=== PATIENT | female | born 1990 | race Caucasian/White ===

== ENCOUNTER 2022-02-15 08:06 | Emergency (ER) | payer BC, SELFPAY ==
--- NOTE | 2022-02-15 08:13 | HMH.EDEXTP ---
ED Disposition Clinical Impression: Vertigo, Gastroenteritis Disposition: Home, Self-Care Condition on Discharge: Good Instructions: Vertigo Additional Instructions: follow up pcp as needed, return hetre for worse Prescriptions: Meclizine HCl [Antivert 25mg tablet] 25 mg PO Q8 PRN #15 tab PRN Reason: Vertigo Transmission Status: Pending to [facility] Ondansetron [Zofran 4mg ODT] 4 mg PO TIDP PRN #15 tab PRN Reason: Nausea And Vomiting Transmission Status: Pending to [id number] Referrals: April Rolon [Primary Care Provider] - - Critical Care Critical Care Time: No Attestation: On , the high probability of a clinically significant, sudden or life threatening deterioration of the following system(s) required my full and direct attention, intervention and personal management. The time I documented below is in addition to time spent performing reported procedures but includes the following listed in this critical care notation. Medical Decision Making - Medical Records Medical records reviewed: Yes: I reviewed the patient's medical records. - Alfred Inquiry Pt receiving controlled substance: No Vital Signs: 02/15/22 08:20 02/15/22 08:30 02/15/22 09:23 Temperature 98.3 F Temperature Source Oral Pulse Rate 69 68 Pulse Rate [Left Radial] 71 Respiratory Rate 17 Blood Pressure 105/63 L 103/70 L Blood Pressure [Right Arm] 92/52 L Blood Pressure Mean 74 81 Blood Pressure Mean [Right Arm] 65 02 Sat by Pulse Oximetry 100 99 100 Oxygen Delivery Method Room Air 02/15/22 09:30 02/15/22 10:01 Temperature Temperature Source Pulse Rate 67 62 Pulse Rate [Left Radial] Respiratory Rate Blood Pressure 110/66 94/62 L Blood Pressure [Right Arm] Blood Pressure Mean 89 73 Blood Pressure Mean [Right Arm] 02 Sat by Pulse Oximetry 100 100 Oxygen Delivery Method - Lab Data Lab Results 02/15/22 08:12: Urine Color Yellow, Urine Appearance Cloudy, Urine pH 8.5, Ur Specific [place] 1.015, Urine Protein Trace, Urine Glucose (UA) Negative, Urine Ketones Negative, Urine Blood 3+, Urine Nitrate Negative, Urine Bilirubin Negative, Urine Urobilinogen 0.2, Ur Leukocyte Esterase Negative, Urine RBC 5-10, Ur Squamous Epith Cells Occasional, Amorphous Sediment 2+, Urine Bacteria 2+ 02/15/22 08:12: Urine HCG, Qual Negative 02/15/22 08:15: WBC 7.0, RBC 4.97, Hgb 14.3, Hct 42.9, MCV 86.3, MCH 28.7, MCHC 33.3, RDW 13.0, Plt Count 344, MPV 7.8, Neut % (Auto) 80.4 H, Lymph % (Auto) 15.3, [place] % (Auto) 3.3, Eos % (Auto) 0.2, Baso % (Auto) 0.8, Neut # (Auto) 5.6, Lymph # (Auto) 1.1, Garfield # (Auto) 0.2, Eos # (Auto) 0.0, Baso # (Auto) 0.1 02/15/22 08:15: Sodium 138, Potassium 4.2, Chloride 107, Carbon Dioxide 23, Anion Gap 12.2, BUN 9, Creatinine 0.50 L, Estimated Creat Clear 186, Estimated GFR 145, Est GFR ( Amer) 175, Glucose 154 H, Calcium 9.2, Total Bilirubin 0.5, AST 30, ALT 25, Alkaline Phosphatase 75, Total Protein 7.7, Albumin 4.8, Globulin 2.9, Albumin/Globulin Ratio 1.7 02/15/22 08:15: Serum HCG, Qual Negative Result diagrams: 02/15/22 08:15 02/15/22 08:15 Orders (Tests/Meds): ED MEDICATIONS Generic Name Dose Route Start Last Admin Trade Name Freq PRN Reason Stop Dose Admin Sodium Chloride 10 ml 02/15/22 10:18 Sodium Chloride 0.9% 10ml Vial IV 03/17/22 10:17 NEEDED PRN to Dilute Lorazepam inj Discontinued Medications Generic Name Dose Route Start Last Admin Trade Name Freq PRN Reason Stop Dose Admin Sodium Chloride 1,000 mls @ 999 mls/hr 02/15/22 08:30 02/15/22 08:30 Sod Chlor 0.9% 1000ml Bag IV 02/15/22 09:30 999 mls/hr .Q1H1M RENÉ Administration Sodium Chloride 1,000 mls @ 999 mls/hr 02/15/22 10:30 02/15/22 10:46 Sod Chlor 0.9% 1000ml Bag IV 02/15/22 11:30 999 mls/hr .Q1H1M RENÉ Administration Lorazepam 0.5 mg 02/15/22 10:18 02/15/22 10:46 Lorazepam 2mg/Ml Vial IV 02/15/22 10:19 0.5 mg ONCE ONE
--- NOTE | 2022-02-15 08:13 | PC.NURSE ---
pt assisted to restroom with assistance from family and Ally Garcia from waiting area by wheelchair before settling into ED room 8. UA sent to lab. pt to ED room 8 by wheelchair and assisted to ED stretcher with assistance; no complications. HEATHER Gerber and HEATHER Coronado at
[2022-02-15 08:17] LABS: Microscopic, Urine URINE MICROSCOPIC (MICROSCOPIC)
[2022-02-15 08:19] LABS: Appearance,Urine CLOUDY (Clear); Bilirubin,Urine Negative (Negative); Blood, Urine 3+ (Negative); Color,Urine YELLOW (Yellow); Glucose,Urine (UA) Negative (Negative); Ketones,Urine Negative (Negative); Leukocyte Esterase,Urine Negative (Negative); Nitrate,Urine Negative (Negative); PH,Urine 8.5 (5.0-8.5); Protein,Urine TRACE (Negative); Specific Gravity, Urine 1.015 (1.005-1.030); Urobilinogen,Urine 0.2 EU/dl (0.2)
[2022-02-15 08:20] VITALS: BP 92/52; PULSE 71; RESP 17; TEMP 36.8; O2SAT 100; BMI 25.4
[2022-02-15 08:21] LABS: Urine Pregnancy, HCG Qual. Negative (Negative)
[2022-02-15 08:29] LABS: Amorphous Sediment,Urine 2+ /lpf
[2022-02-15 08:30] VITALS: BP 105/63; PULSE 69; O2SAT 99
[2022-02-15 08:30] LABS: Basophils # 0.1 K/mm3 (0-0.2); Basophils % 0.8 % (0.1-2.0); Chloride 107 mmol/L (98-107); Eosinophils % 0.2 % (0.1-12.0); Hematocrit 42.9 % (37.0-47.0); Hemoglobin 14.3 g/dL (12.2-16.2); Lymphocytes # 1.1 K/mm3 (0.7-4.5); Lymphocytes % 15.3 % (10-50); Mean Corpuscular HGB Conc 33.3 g/dL (31.8-35.4); Mean Corpuscular Hemoglobin 28.7 pg (27.0-31.2); Mean Corpuscular Volume 86.3 fl (81-99); Mean Platelet Volume 7.8 fl (7.4-10.4); Monocytes # 0.2 K/mm3 (0.1-1.0); Monocytes % 3.3 % (1.7-9.3); Neutrophils # 5.6 K/mm3 (1.8-7.8); Neutrophils % 80.4 % (37.0-80.0); Platelet Count 344 K/mm3 (142-424); Potassium 4.2 mmoL/L (3.5-5.1); Red Blood Count 4.97 M/mm3 (4.20-5.40); Sodium 138 mmol/L (136-145)
[2022-02-15 08:31] LABS: Bacteria,Urine 2+ /lpf; Squamous Epithelial Cell,Urine Occasional #/hpf (0-5)
[2022-02-15 08:33] LABS: Alanine Aminotransferase 25 U/L (12-78); Albumin Level 4.8 g/dl (3.5-5.0); Albumin/Globulin Ratio 1.7 (1.1-1.8); Alkaline Phosphatase 75 U/L (38-126); Anion Gap 12.2 mEq/L (5-15); Aspartate Amino Transferase 30 U/L (14-36); Bilirubin,Total 0.5 mg/dl (0.2-1.3); Blood Urea Nitrogen 9 mg/dl (7-17); Carbon Dioxide 23 mmol/L (22.0-30.0); Creatinine Clearance Estimated 186 mL/min (50-200); Estimated Glomerular Filt Rate 145 ml/min (>60); GFR (African American) 175 ML/MIN (>60); Globulin 2.9 g/dL (1.3-3.2); Total Protein,Serum 7.7 g/dl (6.3-8.2)
[2022-02-15 08:34] LABS: Calcium 9.2 mg/dl (8.4-10.2); Glucose 154 mg/dl (74-100)
[2022-02-15 08:42] LABS: HCG Qualitative, Serum Negative (Negative)
--- NOTE | 2022-02-15 09:20 | PC.NURSE ---
ER MD at speaking with patient regarding update on POC
[2022-02-15 09:23] VITALS: BP 103/70; PULSE 68; O2SAT 100
[2022-02-15 09:30] VITALS: BP 110/66; PULSE 67; O2SAT 100
--- NOTE | 2022-02-15 09:30 | PC.NURSE ---
family at bedside. pt resting. pt refused warm blankets
[2022-02-15 10:01] VITALS: BP 94/62; PULSE 62; O2SAT 100
--- NOTE | 2022-02-15 10:06 | PC.NURSE ---
NITISH ESPARZA at checking in on patient
--- NOTE | 2022-02-15 10:13 | PC.NURSE ---
attempted to ambulate pt. pt stood up and c/o dizziness. sat back on stretcher. aware
--- NOTE | 2022-02-15 10:16 | CT_ITS ---
FINAL REPORT CLINICAL HISTORY: vertigo FINDINGS: Axial images of the head were obtained without contrast. Coronal reformatted images were also obtained.This study was performed with techniques to keep radiation doses as low as reasonably achievable (ALARA). Individualized dose reduction techniques using automated exposure control or adjustment of mA and/or kV according to the patient''s size were employed. There is no evidence of intracranial hemorrhage or mass. The ventricular size is within normal limits. There is no evidence of shift of the midline structures. No abnormal extra axial fluid collection is identified. No skull abnormality is seen on the bone window images. IMPRESSION: No acute intracranial abnormality. Reviewed, Interpreted and Dictated by Andre Mas III, MD Transcribed by Amanda Franklin Authenticated and [facility]
--- NOTE | 2022-02-15 12:06 | PC.NURSE ---
pt ambulatory to restroom with assistance from friend, no complications
--- NOTE | 2022-02-15 12:36 | PC.NURSE ---
pt up ambulatory to bathroom. at pt's side. pt states feeling improved with meds and fluids.
[2022-02-15 13:04] VITALS: BP 96/70; PULSE 60; RESP 16; TEMP 36.8; O2SAT 100
== END 2022-02-15 13:06 | disposition home or self-care (01) ==
PROVIDERS: Emergency Provider Emergency Medicine; PCP Nurse Practitioner Family
DX: R42 Dizziness and giddiness (principal); K52.9 Noninfective gastroenteritis and colitis, unspecified
CPT/HCPCS: 70450; 80053; 81001; 81025; 84703; 85025; 87086; 96365; 96366; 96375; 99284; J2405

== ENCOUNTER 2022-10-07 09:42 | Emergency (ER) | payer BC, SELFPAY ==
[2022-10-07 09:50] VITALS: BP 123/75; PULSE 91; RESP 20; TEMP 36.7; O2SAT 91; BMI 29.0
--- NOTE | 2022-10-07 09:57 | XR_ITS ---
PROCEDURE INFORMATION: Exam: XR Left Ankle Exam date and time: 10/07/2022 9:56 AM Age: 32 years old Clinical indication: Swelling, leg or foot; Additional info: Rolled TECHNIQUE: Imaging protocol: Radiologic exam of the Left ankle. Views: 3 or more views. COMPARISON: No relevant prior studies available. FINDINGS: Bones/joints: Lucency within the most inferior aspect medial malleolus, uncertain if it is acute or remote. Soft tissues: No associated medial swelling. Recommend correlation with patient pain. IMPRESSION: Lucency within the most inferior aspect medial malleolus, uncertain if it is acute or remote. No associated medial swelling. Recommend correlation with patient pain.
--- NOTE | 2022-10-07 09:57 | XR_ITS ---
PROCEDURE INFORMATION: Exam: XR Left Foot Exam date and time: 10/07/2022 9:58 AM Age: 32 years old Clinical indication: Swelling, leg or foot; Additional info: Rolled TECHNIQUE: Imaging protocol: Radiologic exam of the Left foot. Views: 3 or more views. COMPARISON: CR XR ANKLE LT MIN 3V 10/07/2022 9:56 AM FINDINGS: Bones/joints: No acute fracture. No dislocation. Spurring along the plantar calcaneus. Soft tissues: Normal. IMPRESSION: No acute findings.
--- NOTE | 2022-10-07 10:03 | EXP.UTC ---
Discharge Plan Disposition Patient Disposition: Home, Self-Care Condition: Good Prescriptions Prescriptions: New ibuprofen [IBU] 800 mg tablet 800 mg PO Q8HP PRN (Reason: Moderate Pain) Qty: 30 0RF azithromycin [Zithromax] 250 mg tablet 250 mg PO UD DOSE PK Qty: 6 0RF Rx Instructions: Take two (2) tablets today, then one (1) tablet days #2 thru #5 promethazine-DM 6.25-15 mg/5 mL Syrup 5 ml PO Q6H PRN (Reason: Cough) Qty: 240 0RF No Action quetiapine 25 mg tablet 25 mg PO Q6HP PRN (Reason: Anxiety) Label Comments: TAKE 1 TO 4 TABLETS BY MOUTH AT BEDTIME NEEDED FOR ANXIETY lamotrigine 150 mg tablet 150 mg PO DAILY Label Comments: TAKE 1 TABLET BY MOUTH ONCE DAILY levothyroxine 25 mcg tablet 25 mcg PO DAILY Label Comments: TAKE 1 TABLET BY MOUTH 1 ONCE DAILY Referrals Follow up/Referrals: April Rolon [Primary Care Provider] - See instructions Brit Walsh DPM [Staff Physician] - See instructions Activity Restrictions/Add. Instructions Additional Instructions/Restrictions: Rest the extremity, Elevate the extremity as tolerated while you are resting. Take ibuprofen for pain. I sent in a prescription to your pharmacy. Follow up with Dr. Walsh (podiatry). I put in a referral but you need to call her office and schedule an appointment. Follow up with your regular doctor. GO TO THE ER FOR ANY WORSENING SYMPTOMS The cough medication (promethazine dm) will make you drowsy, so don't drive or operate heavy machinery after taking it. Clinical Impressions Clinical Impression: Left ankle sprain, Bronchitis Instructions Patient Instructions: Ankle Sprain, DI for Ankle Sprain Discharge ED Provider: Benson Bautista [facility] General Stated complaint: AO 10/06 Left ankle, Cough Time Seen by Provider: 10/07/22 10:03 History of Present Illness Provider Complaint: She states that she twisted her left ankle yesterday. Since then she has had left ankle pain with walking and bearing weight. She has also had sinus congestion for the past 5 days. Related Data Home Medications Medication Instructions Recorded Confirmed lamotrigine 150 mg tablet 150 mg PO DAILY bipolar 10/07/22 10/07/22 levothyroxine 25 mcg tablet 25 mcg PO DAILY thyroid 10/07/22 10/07/22 quetiapine 25 mg tablet 25 mg PO Q6HP PRN Anxiety 10/07/22 10/07/22 Previous Rx's Medication Instructions Recorded azithromycin 250 mg tablet 250 mg PO UD DOSE PK #6 tabs 10/07/22 (Zithromax) ibuprofen 800 mg tablet (IBU) 800 mg PO Q8HP PRN Moderate Pain 10/07/22 #30 tabs promethazine-DM 6.25 mg-15 mg/5 mL 5 ml PO Q6H PRN Cough #240 mL 10/07/22 oral syrup Allergies Allergy/AdvReac Type Severity Reaction Status Date / Time No Known Allergies Allergy Verified 10/07/22 10:27 [facility] Disclaimer: The information contained in this section may have been updated after the patient was seen, as this information can be updated by other users. Social History Smoking Status: Never smoker alcohol intake: never current occupational status: employed Travel in the last 8 weeks: None ROS Obtained: Yes All systems reviewed & no additional complaints except as documented Constitutional Constitutional: Denies chills and Denies fever(s) Eyes Eyes: Denies eye discharge ENT Ears, Nose, Mouth, and Throat: Reports as per HPI Cardiovascular Cardiovascular: Denies chest pain Respiratory Respiratory: Denies shortness of breath, Denies chest congestion, Denies cough, Denies stridor and Denies wheezing Gastrointestinal Gastrointestingal: Denies nausea or vomiting Musculoskeletal Musculoskeletal: Reports as per HPI Integumentary/Breasts Skin/Breast: Denies rash Neurologic Neurologic: Denies paresthesias Allergic/Immunologic Allergic/Immunologic: Denies wheezing Physical Exam General General appearance: alert and in
[2022-10-07 11:12] VITALS: BP 123/75; PULSE 91; RESP 20; TEMP 36.7; O2SAT 97
== END 2022-10-07 11:12 | disposition home or self-care (01) ==
PROVIDERS: Emergency Provider Nurse Practitioner Family; PCP Nurse Practitioner Family
DX: S93.402A Sprain of unspecified ligament of left ankle, initial encounter (principal); J40 Bronchitis, not specified as acute or chronic
CPT/HCPCS: 73610; 73630; 99212; 99213; G0463

== ENCOUNTER 2025-01-28 15:13 | Outpatient (CLI) | payer BC, SELFPAY ==
[2025-01-28 15:07] LABS: Coronavirus 19, PCR Not Detected (NotDetected); Influenza A, PCR Not Detected (NotDetected); Influenza B, PCR Not Detected (NotDetected); Respiratory Syncytial Virus Not Detected (NotDetected)
[2025-01-28 18:10] LABS: Human Rhinovirus Detected (NotDetected)
== END 2025-01-28 23:59 | disposition home or self-care (01) ==
LOC: LAB.DROPOF 15:13
PROVIDERS: PCP Nurse Practitioner Family; Visit Provider Student in an Organized Health Care Education/Training Program
DX: Z20.822 Contact with and (suspected) exposure to COVID-19 (principal)
CPT/HCPCS: 87631

== ENCOUNTER 2025-07-05 09:13 | Outpatient (CLI) | payer BC, SELFPAY ==
--- OUTSIDE RECORDS SUMMARY | 2025-05-11 07:30 | XMS_ITS | Encounter Summary ---
Author Organization [facility] Address [address] [place] [id number] Phone [email or web address] Care Team Providers Care Crook Operator Name Role Phone April Rolon APRN Primary Care Provider [phone] Reason for Visit * Reason Comments Return to Work / Duty Encounter Details Date Type Department Care Team (Latest Contact Info) Description 05/11/2025 8:30 AM EDT Clinical Support [facility] [address] [place] [address] Kristel Plascencia, RN [address] [place] [address] Return to work evaluation (Primary Dx) Social History Tobacco Use Types Packs/Day Years Used Date Smoking Tobacco: Former Cigarettes 1 5 0 05/23/2004 - 05/23/2009 Smokeless Tobacco: Never Alcohol Use Standard Drinks/Week Comments Yes 0 (1 standard drink = 0.6 oz pur e alcohol) Intimate Partner Violence Answer Date R ecorded Insults You Not on file 12/06/2020 Threatens You Not on file 12/06/2020 Screams at You Not on file 12/06/2020 Physically Hurt Not on file 12/06/2020 Intimate Partner Violence Score Not on file 12/06/2020 Alcohol Use Answer Date Recorded Alcohol Use Status Yes 05/11/2025 Depression Answer Date Recorded PHQ Total Score 0 05/11/2025 Stress Answer Date Recorded Stress in your Life Not on file 06/28/2024 Dealing with Stress 3 06/28/2024 Comments No Sex and Gender Information Value Date Recorded Sex Assigned at Not on file Legal Sex Female 8:07 AM CDT Gender Identity Not on file Sexual Orientation Not on file documented as of this encounter Last Filed Vital Signs Vital Sign Reading Time Taken Comments Blood Pressure 123/79 05/11/2025 8:09 AM EDT Pulse 73 05/11/2025 8:09 AM EDT Temperature - - Respiratory Rate - - Oxygen Saturation 98% 05/11/2025 8:09 AM EDT Inhaled Oxygen Concentration - - Weight - - Height - - Body Mass Index - - documented in this encounter Progress Notes * Kristel Plascencia RN - 05/11/2025 8:30 AM EDT Subjective Amanda Raymond is a 35 y.o. female who presents for personal return to work after left foot big toenail removed . WD ID: [id number] Employer: [employer]: [id number] Shift: 1st Full-time GL and #: Rodrigo Oliver Previous/current indefinite restrictions? No LDW: 05/01/25 DOS: N/A PROCEDURE: N/A SURGEON: N/A RELEASE: Regular Duty 05/12/25 PMLOA. Tm has been off for left great toenail removal. Tm states that recovery went well. Denies s/s of infection. Tm states that she only has minimal pain that occurs when anything touched her nail bed. Denies additional concerns. RTW note in chart. Triage nurse: Kristel Plascencia RN HPI History Reviewed: Allergies Meds Problems Med Hx Surg Hx Objective Visit Vitals BP 123/79 Pulse 73 SpO2 98% OB Status IUD Smoking Status Former Review of Systems PHQ-9 Total Score: 0 (05/11/2025 8:12 AM) Physical Exam Assessment: No diagnosis found. No orders of the defined types were placed in this encounter. There are no Patient Instructions on file for this visit. documented in this encounter Plan of Treatment Not on file documented as of this encounter Visit Diagnoses Diagnosis Return to work evaluation- Primary Other specified examination documented in this encounter Care Teams Crook Operator Relationship Specialty Start Date End Date April Rolon APRN [address] [place] [address] PCP - General Regional Business Development Manager 01/29/22 documented as of this encounter
--- NOTE | 2025-07-05 09:13 | XR_ITS ---
FINAL REPORT TECHNIQUE: Right knee 3 views CLINICAL HISTORY: right knee pain knee is weak if pt stands on that leg only pain if twists COMPARISON: None FINDINGS: RIGHT KNEE 3 views of the right knee were obtained. There is no acute fracture or dislocation. The joint spaces are intact. There is no soft tissue abnormality. IMPRESSION: No acute fracture Reviewed, Interpreted and Dictated by Ayush Ferguson MD Transcribed by Marni Velasquez Authenticated and [facility]
--- OUTSIDE RECORDS SUMMARY | 2025-07-05 09:26 | XMS_ITS | Clinical Summary ---
Author Organization [facility] Address [address] [place] [address], [address] [place] [address] Care Team Providers Care Orthodontic Treatment Coordinator Name Role Phone Unavailable Primary Care Provider Unavailabl e Social History Tobacco Use Types Packs/Day Years Used Date Smoking Tobacco: Never Assessed Comments Unknown Sex and Gender Information Value Date Recorded Sex Assigned at Not on file Legal Sex Female 8:58 AM EDT Gender Identity Not on file Sexual Orientation Not on file Plan of Treatment Not on file
--- OUTSIDE RECORDS SUMMARY | 2025-07-05 09:26 | XMS_ITS | Encounter Summary ---
Author Organization [facility] ([place], [place], [place], [place], [place]) Address [address] [place] [address] Care Team Providers Care Machinist Mechanic Name Role Phone April Rolon APRN Primary Care Provider [phone] Encounter Details Date Type Department Care Team (Late st Contact Info) Description 12/25/2023 Surgery Prep [facility] Surgery Department [address] [place] [address] [place] Gómez MD [address] [place] [address] Social History Tobacco Use Types Packs/Day Years Used Date Smoking Tobacco: Never Assessed Family and Community Support Answer Jesus e Recorded Help with Day to Day Activities Not on file 11/13/2023 Feeling Lonely or Isolated Not on file 11/12 Educational Attainment Answer Date Beltran rded Speak language other than Venezuelan at home Not on file 11/13/2023 Want help with school or training Not on file 11/13/2023 Substance Use Answer Date Recorded Used prescription meds for non-medical reasons N ot on file 11/13/2023 Used illegal drugs past 12 months Not on file 11/13/2023 Comments Unknown Sex and Gender Information Value Date Recorded Sex Assigned at Not on file Legal Sex Female 9:52 AM CDT Gender Identity Not on file Sexual Orientation Not on file documented as of this encounter Plan of Treatment Not on file documented as of this encounter Visit Diagnoses Not on filedocumented in this encounter Care Teams Machinist Mechanic Relationship Specialty Start Date End Date April Rolon APRN PCP - General Nurse Practitioner 12/26/23 documented as of this encounter
--- OUTSIDE RECORDS SUMMARY | 2025-07-05 09:26 | XMS_ITS | Clinical Summary ---
Author Organization [facility] Address [address] [place] [address] Care Team Providers Care Ragman Name Role Phone April Rolon Marcos JENNINGS Primary Care Provider [phone] Allergies No known active allergies Medications B-Tlraacrcpvbb-Aqtg e (L-Methylfolate Forte) 15-90.314 MG capsule Take 1 capsule by mouth. 1 Active lamoTRIgine (LaMICtal) 150 MG tablet Take 0.5 tablets (75 mg) by mouth 1 (one) time each day. 2 Active meloxicam (Mobic) 15 MG tabletIndications:A cute bilateral low back pain without sciatica Take 1 tablet (15 mg) by mouth 1 (one) time each day. 30 tablet 4 Active methocarbamol (Robaxin) 500 MG tablet Take 1 tablet (500 mg) by mouth at night if needed for muscle spasms for up to 15 days. 15 tablet 4 Active EluRyng 0.12-0.015 MG/24HR vaginal ring Insert 1 each into the vagina every 28 (twenty-eigh t) days. 4 Active lurasidone (Latuda) 40 MG tablet Take 1 tablet (40 mg) by mouth 1 (one) time each day with breakfast. 4 Active traZODone (Desyrel) 50 MG tablet Take 1 tablet (50 mg) by mouth every night. Active cyclobenzaprine (Flexeril) 10 MG tabletIndications:S ciatica of left side Take 1 tablet (10 mg) by mouth 3 (three) times a day for 5 days. 15 tablet 4 Active levothyroxine (Synthroid, Levoxyl) 25 MCG tabletIndications:A cquired hypothyroidism Take 1 tablet by mouth once daily 30 tablet 5 Active clonazePAM (KlonoPIN) 0.5 MG tablet Take 1 tablet by mouth daily. 5 Active Active Problems Problem Noted Date Diagnosed Date Vertigo 02/14/2022 H/O abnormal cervical Papanicolaou smear 020 Overview (03/14/2021): 02/12 neg. Pap 06/13 colpo XU I 04/13 pap LSIL Bipolar 1 disorder 05/14/2018 Vitamin D deficiency 10/01/2017 Acquired hypothyroidism 09/30/2017 Immunizations Immunization Administration Dates Next Due DTP 1995, 3,1991,1990,1991 HPV, Quadrivalent 12/16/2007,08/12/2007,06/10/20 07 Hep B, Adolescent or Pediatric 04/28/2002,2001,10/28/2001 HiB, unspecified 03/23/1993, 2,1991,1990 Influenza, injectable, quadr ivalent, preservative free 07/22/2019,05/24/2017,06/07/2016,2014 Influenza, seasonal, injectable 07/07/2008 MMR 10/28/2001,1991 Polio, Unspecified 1995, 3,1991,1990 TD (adult), 2 Lf tetanus tox oid, preservative free, adsorbed 05/07/2003 Tdap 10/22/2022,01/11/2018,03/04/2012 Family History Medical History Relation Name Comments Lung cancer Maternal Grandfather Depression Mother Relation Name Status Comments Maternal Grandfather Mother Social History Tobacco Use Types Packs/Day Years Used Date Smoking Tobacco: Never Passive Smoke Exposure: Never Smokeless Tobacco: Never Alcohol Use Standard Drinks/Week Comments Never 0 (1 standard drink = 0.6 oz pur e alcohol) Humiliation, Afraid, Rape, and Kick questionnair e Answer Date Recorded Within the last year, have y ou been afraid of your partner or ex-partner? No 02/11/2024 Within the last year, have y ou been humiliated or emotionally abused in other ways by your partner or ex-partner? No Within the last year, have y ou been kicked, hit, slapped, or otherwise physically hurt by your partner or ex-partner? No 02/11/2024 Within the last year, have y ou been raped or forced to have any kind of sexual activity by your partner or ex-partner? No 02/11/2024 Social Connection and Isolation Panel Answer Date Recorded In a typical week, how many times do you talk on the phone with family, friends, or neighbors? More than three times a week 09/18/2023 How often do you get togethe r with friends or relatives? More than three times a week 09/18/2023 How often do you attend [facility] or [facility] services? More than 4 times per year 09/18/2023 Do you belong to any clubs o r organizations such as latter day groups, unions, fraternal or athletic groups, or school groups? Yes 09/18/2023 How often do you attend meet ings of the clubs or organizations you belong to? More than 4 times per year 09/18/2023 Are you , , di vorced, , never , or living with a partner? 09/18/2023 AUDIT-C Answer Date Recorded Q1: How often do you have a drink containing alcohol? Never 09/18/2023 Q2: How many drinks containi ng alcohol do you have on a typical day when you are drinking? Patient does not drink Q3: How often do you have si x or more drinks on one occasion? Never 09/18/2023 PHQ-2 Answer Date Recorded Patient Health Questionnaire-2 Score 0 05/21/2024 [facility] - Occupational Stress Questionnaire Answer Date Recorded Do you feel stress - tense, restless, nervous, or anxious, or unable to sleep at night because your mind is troubled all the time - these days? Very much 09/18/2023 Exercise Vital Sign Answer Date Recorde d On average, how many days pe r week do you engage in moderate to strenuous exercise (like a brisk walk)? 7 days 09/18/2023 On average, how many minutes do you engage in exercise at this level? 60 min 09/18/2023 Hunger Vital Sign Answer Date Recorded Within the past 12 months, y ou worried that your food would run out before you got the money to buy more. Never true 02/11/20 24 Within the past 12 months, t he food you bought just didn't last and you didn't have money to get more. Never true 02/11/2024 PRAPARE - Transportation Answer Date Re corded In the past 12 months, has l ack of transportation kept you from medical appointments or from getting medications? No 01/24 In the past 12 months, has l ack of transportation kept you from meetings, work, or from getting things needed for daily living? No 02/11/2024 Housing Stability Vital Sign Answer Jesus e Recorded In the last 12 months, was t here a time when you were not able to pay the mortgage or rent on time? No 02/11/2024 In the last 12 months, how many places have you lived? 1 02/11/2024 In the last 12 months, was t here a time when you did not have a steady place to sleep or slept in a residential (including now)? No 02/11/2024 Safety and Environment Answer Date Beltran rded Do you worry that your child may have been physically abused? No 02/11/2024 Do you worry that your child may have been sexua lly abused? No 02/11/2024 Are there any guns kept in o r around your home or where your child spends time? No 02/11/2024 Guns Unloaded or Locked Away Not on file Utilities Answer Date Recorded In the past 12 months has th e electric, gas, oil, or water company threatened to shut off services in your home? No 02/11/2024 PHQ-2A Answer Date Recorded Patient Health Questionnaire-2 Score 0 01/03/2023 Comments Unknown Sex and Gender Information Value Date Recorded Sex Assigned at Not on file Legal Sex Female 6:59 PM EDT Gender Identity Not on file Sexual Orientation Not on file Last Filed Vital Signs Vital Sign Reading Time Taken Comments Blood Pressure 106/74 05/21/2024 8:23 AM EDT Pulse 57 05/21/2024 8:23 AM EDT Temperature 36.5 C (97.7 F) 02/11/2024 1:54 PM EDT Respiratory Rate 18 09/18/2023 8:13 AM EST Oxygen Saturation 100% 05/21/2024 8:23 AM EDT Inhaled Oxygen Concentration - - Weight 70.8 kg (156 lb 1.6 oz) 05/21/2024 8:23 A M EDT Height 162.6 cm (5' 4 ) 05/21/2024 8:23 AM EDT Body Mass Index 26.79 05/21/2024 8:23 AM EDT Plan of Treatment Health Maintenance Due Date Last Done Comments [facility]-HIV Screening 1991 [facility]-Hepatitis C Screening 1991 [facility]-/Child/Adol SDOH Screenings 1991 [id number] Vaccine (#1) 1996 [facility]-Varicella Vaccines (1 of 2 - 13+ 2-dose series) 2004 [facility]- SDOH Screenings 2009 [facility]-Adult SDOH Screenings 2009 [facility]-Pap Smear 2012 [facility]-Cervical Cancer Screening 2021 [facility]-HPV/Cotest 2021 [facility]-Influenza Vaccine (#1) 04/26/202507/22, 05/24/2017, 06/07/2016, Additional history exists [facility]-Depression Screening 05/21/2025 05/21/2024 [facility]-DTaP,Tdap,and Td Vaccines (9 - Td or Tdap) 10/22/2032 10/22/2022, 01/11/2018, 03/04/2012, Additional history exists [facility]-Zoster Vaccines (1 of 2) 2041 [facility]-HIB Vaccines Completed 03/23/1993, , 1991, Additional history exists [facility]-IPV Vaccines Aged Out 1995, , 1991, Additional history exists No longer eligible based on patient's age to complete this topic [facility]-Hepatitis B Vaccines Completed 002, 11/28/2001, 10/28/2001 HPV Vaccines Completed 12/16/2007, 07/26, 06/10/2007 [facility]-Obesity Intervention Completed 024, 02/11/2024, 02/04/2024, Additional history exists [facility]-Hepatitis A Vaccines Aged Out No longer eligible based on patient's age to complete this topic [facility]-Pneumococcal Vaccine: Pediatrics (0 to 5 Years) and At-Risk Patients (6 to 49 Years) Aged Out No longer eligible based on patient's age to complete this topic [facility]-Rotavirus Vaccines Aged Out No lo nger eligible based on patient's age to complete this topic Insurance DYLAN Care Teams Ragman Relationship Specialty Start Date End Date April Rolon APRN [address] [place] [id number] PCP - General 01/06/21
--- OUTSIDE RECORDS SUMMARY | 2025-07-05 09:26 | XMS_ITS | Referral Summary ---
Author Organization [facility] ([place], [place], [place], [place], [place]) Address [address] [place] [address] Care Team Providers Care Lean Manager Name Role Phone April Rolon APRN Primary Care Provider [phone] Allergies No known active allergies Medications doxepin (SINEquan) 10 MG capsule Take 1 capsule (10 mg total) by mouth nightly. Active traZODone (DESYREL) 50 MG tablet Take 1 tablet (50 mg total) by mouth nightly. Active ondansetron (ZOFRAN-ODT) 4 MG disintegrating tablet Take 1 tablet (4 mg total) by mouth every 8 (eight) hours as needed for Nausea. Active meloxicam (MOBIC) 7.5 MG tablet Take 1 tablet (7.5 mg total) by mouth daily. Active levothyroxine (SYNTHROID, LEVOTHROID) 25 MCG tablet Take 1 tablet (25 mcg total) by mouth Every morning on an empty stomach. Active lurasidone (Latuda) 20 mg Tab Take 1 tablet (20 mg total) by mouth daily. Active lamoTRIgine (LaMICtal) 150 MG tablet Take 1 tablet (150 mg total) by mouth daily. Active lamoTRIgine (LaMICtal) 100 MG tablet Take 1 tablet (100 mg total) by mouth daily. Active Social History Tobacco Use Types Packs/Day Years Used Date Smoking Tobacco: Never Assessed Family and Community Support Answer Jesus e Recorded Help with Day to Day Activities Not on file 11/13/2023 Feeling Lonely or Isolated Not on file 11/12 Educational Attainment Answer Date Beltran rded Speak language other than Palestinian at home Not on file 11/13/2023 Want [...] Sign Reading Time Taken Comments Blood Pressure 106/53 12/26/2023 10:45 AM EDT Pulse 77 12/26/2023 10:45 AM EDT Temperature 36.3 C (97.4 F) 12/26/2023 10:45 AM EDT Respiratory Rate 16 12/26/2023 10:45 AM EDT Oxygen Saturation 100% 12/26/2023 10:45 AM EDT Inhaled Oxygen Concentration - - Weight 72.6 kg (160 lb) 12/26/2023 7:30 AM EDT Height 162.6 cm (5' 4 ) 12/26/2023 7:30 AM EDT Body Mass Index 27.46 12/26/2023 7:30 AM EDT Plan of Treatment Not on file Insurance BLUE CROSS/BLUE SHIELD Advance Directives For more information, please contact: [phone] * Full Code (Latest Code Status on File) Date Activated Date Inactivated Comments 12/26/2023 6:31 AM 12/26/2023 12:53 PM Care Teams Lean Manager Relationship Specialty Start Date End Date April Rolon, SERVICE LEARNING COORDINATOR PCP - General Nurse Practitioner 12/26/23
--- OUTSIDE RECORDS SUMMARY | 2025-07-05 09:26 | XMS_ITS | Clinical Summary ---
Author Organization [facility] Address [address] [place] [id number] Phone [email or web address] Care Team Providers Care Business Project Manager Name Role Phone April Rolon APRN Primary Care Provider [phone] Allergies Active Allergy Reactions Criticality Noted Date Comments Latex 05/14/2022 Medications NUVARING 0.12-0.015 MG/24HR vaginal ring 9 Active traZODone (DESYREL) 50 MG tablet Take 50 mg by mouth every night. 1 Active L-Methylfolate- Algae (L-Methylfolate Forte) 15-90.314 MG capsule Take 1 capsule by mouth 1 (one) time each day. 1 Active lamoTRIgine (LaMICtal) 25 MG tablet TAKE ONE TABLET BY MOUTH ONCE DAILY FOR TWO WEEKS. THEN INCREASE TO TWO TABLET ONCE DAILY. 1 Active lurasidone (LATUDA) 20 MG tablet Take 20 mg by mouth. 2 Active busPIRone (BUSPAR) 5 MG tablet Take 5 mg by mouth in the morning and 5 mg before bedtime. 2 Active levothyroxine (SYNTHROID) 25 MCG tablet 2 Active meclizine (ANTIVERT) 25 MG tablet TAKE 1 TABLET BY MOUTH THREE TIMES DAILY NEEDED FOR DIZZINESS 2 Active lamoTRIgine (LaMICtal) 150 MG tablet Take 150 mg by mouth 1 (one) time each day. 3 Active QUEtiapine (SEROquel) 25 MG tablet TAKE 1 TO 4 TABLETS BY MOUTH AT BEDTIME NEEDED FOR ANXIETY 3 Active Etonogestrel 68 MG implant Inject into the skin. 2 Active Melatonin 1 MG capsule Take by mouth. Activ e Active Problems Problem Noted Date Diagnosed Date Bipolar 1 disorder 05/23/2018 Open wound of hip and thigh 03/04/2012 Overview (01/22/2018): Return to work evaluation 04/02/2011 Overview (01/22/2018): Encounters Date Type Department Care Team Description 05/11/2025 8:30 AM EDT Clinical Support [facility] [id number] [facility] [address] [place] [id number] Kristel Plascencia RN Return to work evaluation (Primary Dx) 05/10/[address] [address] No, Pcp from Last 3 Months Immunizations Immunization Administration Dates Next Due Tdap (ADACEL BOOSTRIX) (CVX-[id number]) 01/03/2018,02/23 Social History Tobacco Use Types Packs/Day Years Used Date Smoking Tobacco: Former Cigarettes 1 5 0 05/23/2004 - 05/23/2009 Smokeless Tobacco: Never Tobacco Cessation:Counseling Given: Not Answered Alcohol Use Standard Drinks/Week Comments Yes 0 [...] Pulse 73 05/11/2025 8:09 AM EDT Temperature 36.3 C (97.3 F) 02/14/2024 8:05 AM EDT Respiratory Rate 18 02/14/2024 8:05 AM EDT Oxygen Saturation 98% 05/11/2025 8:09 AM EDT Inhaled Oxygen Concentration - - Weight 71.7 kg (158 lb) 02/05/2022 8:43 AM EDT Height 163.8 cm (5' 4.5 ) 02/05/2022 8:43 AM EDT Body Mass Index 26.7 02/05/2022 8:43 AM EDT Plan of Treatment Health Maintenance Due Date Last Done Comments Cervical Cancer Screening Combo 1991 Dental Cleaning/Exam 1991 HIV Screening 1991 HPV only / HPV + Pap 1991 Hepatitis C Screening 1991 Pap only testing 1991 Hep B Infection Screening - Triple Screen 2009 Annual Preventive Exam 02/05/2023 02/05/2022 Covid-19 Immunization ( season) 2025 Influenza Immunization (#1) 04/26/202506/27, 05/24/2017, 06/07/2016, Additional history exists Tetanus Diphtheria and Pertussis Immunization (9 - Td or Tdap) 10/22/2032 10/22/2022, 01/03/2018, 03/04/2012, Additional history exists HIB Immunization Completed 03/23/1993, , 1991, Additional history exists Polio Immunization Completed 1995, 0 03/23/1993, 1991, Additional history exists Hepatitis B Immunization Completed 002, 11/28/2001, 10/28/2001 HPV Immunization Completed 12/16/2007, , 06/10/2007 Hepatitis A Immunization Aged Out No longer eligible based on patient's age to complete this topic Pneumococcal Immunization Aged Out No longer eligible based on patient's age to complete this topic Varicella Immunization Aged Out No lo nger eligible based on patient's age to complete this topic Insurance DYLAN [place] 5 Care Teams Business Project Manager Relationship Specialty Start Date End Date April Rolon APRN [address] [place] [address] PCP - General Therapeutic Case Manager 01/29/22
--- OUTSIDE RECORDS SUMMARY | 2025-07-05 09:26 | XMS_ITS | Clinical Summary ---
Author Organization [facility] Address [address] [place] [address] Care Team Providers Care Natural Resources Extension Educator Name Role Phone System, Provider Not In Primary Care Provider Un available Allergies No known active allergies Medications levothyroxine (SYNTHROID, LEVOTHROID) 25 MCG tabletIndications: Acquired hypothyroidism Take 1 tablet by mouth Daily. 90 tablet 1 01/03/20 18 Active lamoTRIgine (LaMICtal) 150 MG tablet 09/11/19 23 Active N-Kdaqaembnvrr-Gbo ae (L-Methylfolate Forte) 15-90.314 MG capsule capsule L-Methylfolate Forte 15-90.314 MG Oral Capsule QTY: 90 Days: 90 Refills: 0 Written: 05/15/22 Patient Instructions: 05/15/20 22 Active metroNIDAZOLE (METROCREAM) 0.75 % cream APPLY A PEA-SIZED AMOUNT TWICE DAILY TO ENTIRE FACE 09/03/19 23 Active meloxicam (MOBIC) 7.5 MG tablet 09/11/19 23 Active ibuprofen (ADVIL,MOTRIN) 800 MG tablet Take 1 tablet by mouth Every 6 (Six) Hours As Needed. for pain 06/28/20 22 Active lurasidone (LATUDA) 40 MG tablet tablet Take 1 tablet by mouth Daily. 12/24/19 24 Active traZODone (DESYREL) 50 MG tablet Take 1 tablet by mouth. Active etonogestrel-ethin yl estradiol (NuvaRing) 0.12-0.015 MG/24HR vaginal ringIndications:En counter for other general counseling or advice on contraception Insert vaginally and leave in place for 3 consecutive weeks, then remove for 1 week. 3 each 3 02/12/20 24 Active Active Problems Problem Noted Date Diagnosed Date H/O abnormal cervical Papanicolaou smear 020 Overview (08/10/2020): 02/12 neg. Pap 06/13 colpo XU I 04/13 pap LSIL Vitamin D deficiency 10/01/2017 Acquired hypothyroidism 09/30/2017 Resolved Problems Problem Noted Date Diagnosed Date Resolved Date Currently 03/06/2019 0 Family History Medical History Relation Name Comments No Known Problems Father Migraines Maternal Aunt Thyroid disease Maternal Aunt Thyroid disease Maternal Grandfather No Known Problems Mother Relation Name Status Comments Father Maternal Aunt Maternal Grandfather Mother Social History Tobacco Use Types Packs/Day Years Used Date Smoking Tobacco: Former Cigarettes Q uit: 04/24/2011 Smokeless Tobacco: Never Alcohol Use Standard Drinks/Week Comments No 0 (1 standard drink = 0.6 oz pur e alcohol) AUDIT-C Answer Date Recorded Frequency of Alcohol Consumption Never 03/06/2019 Average Number of Drinks Not on file 019 Frequency of Binge Drinking Not on file 02/23 [place] Depression Scale Answer Date Recorded [place] Depression Scale Total 2 03/08/2019 The thought of harming myself has occurred to me . Unrecognized value 03/08/2019 Abuse Screen Answer Date Recorded Unsafe at Home or Work/School Not on file Feels Threatened by Someone? Not on file 06/2023 Does Anyone Keep You from Co ntacting Others or Doint Things Outside the Home? Not on file 06/05/2023 Physical Sign of Abuse Present Not on file 1 Housing Stability Answer Date Recorded Current Living Arrangements Not on file 05/26 Potentially Unsafe Housing Conditions Not on te e 06/05/2023 Family and Community Support Answer Jesus e Recorded Help with Day-to-Day Activities Not on file 06/05/2023 Lonely or Isolated Not on file 06/05/2023 Employment Answer Date Recorded Do you want help finding or keeping work or a scottie b? Not on file 06/05/2023 Disabilities Answer Date Recorded Concentrating, Remembering, or Making Decisions Difficulty Not on file 06/05/2023 Doing Errands Independently Difficulty Not on fi le 06/05/2023 Education Answer Date Recorded Help with school or training? Not on file Preferred Language Not on file 06/05/2023 Comments No Sex and Gender Information Value Date Recorded Sex Assigned at Not on file Legal Sex Female 10:26 AM EDT Gender Identity Not on file Sexual Orientation Not on file Last Filed Vital Signs Vital Sign Reading Time Taken Comments Blood Pressure 112/76 02/12/2024 2:55 PM EDT Pulse 63 03/08/2019 8:00 AM EDT Temperature 36.6 C (97.9 F) 03/08/2019 7:00 AM EDT Respiratory Rate 16 03/08/2019 7:00 AM EDT Oxygen Saturation 99% 04/24/2017 8:54 AM EDT Inhaled Oxygen Concentration - - Weight 73.2 kg (161 lb 6.4 oz) 02/12/2024 2:55 P M EDT Height 162.6 cm (5' 4.02 ) 02/12/2024 2:55 PM ED T Body Mass Index 27.69 02/12/2024 2:55 PM EDT Plan of Treatment Health Maintenance Due Date Last Done Comments HEPATITIS C SCREENING 04/24/2017 ANNUAL PHYSICAL 02/23/2018 02/23/2017 (Patient-Reported (Performed Externally)) Annual Gynecologic Pelvic and Breast Exam 02/12/2025 02/12/2024, 08/29/2021 INFLUENZA VACCINE 03/26/2025 07/22/2019, , 06/07/2016, Additional history exists TDAP/TD VACCINES (6 - Td or Tdap) 10/22/2032 10/22/2022, 01/11/2018, 03/04/2012, Additional history exists Pneumococcal Vaccine 0-49 Aged Out No longer eligible based on patient's age to complete this topic Procedures Procedure Name Priority Date/Time Associated Diagnosis Comments SCANNED - PAP SMEAR Routine 08/29/2021 from Last 3 Months or Most Recently Relevant to Health Maintenance Results * PAP SMEAR SCANNED (08/29/2021) us Kenna Randle MD CHART REVIEW TABS Final Resul t [facility]
[address] [place] [address], [place] [phone] from Last 3 Months or Most Recently Relevant to Health Maintenance Insurance [facility] PPO Advance Directives * CPR (Attempt to Resuscitate) (Latest Code Status on File) Date Activated Date Inactivated Comments 2019 4:51 AM 03/08/2019 6:48 PM Question Answer Comments Code Status (Patient has no pulse and is not breathing): CPR (Attempt to Resuscitate) Medical Interventions (Patie nt has pulse or is breathing): Full * CPR (Attempt to Resuscitate) Date Activated Date Inactivated Comments 03/06/2019 12:25 PM 2019 4:51 AM Question Answer Comments Code Status (Patient has no pulse and is not breathing): CPR (Attempt to Resuscitate) Medical Interventions (Patie nt has pulse or is breathing): Full Care Teams Natural Resources Extension Educator Relationship Specialty Start Date End Date System, [place] [address] PCP - General 01/22/23
--- OUTSIDE RECORDS SUMMARY | 2025-07-05 09:26 | XMS_ITS | Clinical Summary ---
Author Organization [facility] ([place], [place], [place], [place], [place]) Address [address] [place] [address] Care Team Providers Care Video Production Engineer Name Role Phone April Rolon APRN Primary Care Provider [phone] Allergies No known active allergies Medications doxepin [...] Date Beltran rded Speak language other than Zimbabwean at home Not on file 11/13/2023 Want [...] 12/26/2023 7:30 AM EDT Plan of Treatment Health Maintenance Due Date Last Done Comments Depression Screening (12+) 2003 Tobacco Cessation Counseling and Screening (12+) 2003 HIV Screening 2006 Hepatitis C Screening 2009 Pap Smear 2012 COVID-19 VACCINE ( season) 2025 Influenza Vaccine (#1) 2025 DTAP/TDAP/TD VACCINES (5 - Td or Tdap) 10/22/2032 10/22/2022, 01/11/2018, 03/04/2012, Additional history exists Pneumococcal Vaccine: 0-49 Years Aged Out No longer eligible based on patient's age to complete this topic Insurance BLUE CROSS/BLUE SHIELD Advance Directives For more information, please contact: [phone] * Full Code (Latest Code Status on File) Date Activated Date Inactivated Comments 12/26/2023 6:31 AM 12/26/2023 12:53 PM Care Teams Video Production Engineer Relationship Specialty Start Date End Date April Rolon APRN PCP - General Nurse Practitioner 12/26/23
--- OUTSIDE RECORDS SUMMARY | 2025-07-05 09:26 | XMS_ITS | Encounter Summary ---
Author Organization [facility] Address [address] [place] [address] Phone [email or web address] Care Team Providers Care Principal Clerk Name Role Phone April Rolon APRN Primary Care Provider [phone] Encounter Details Date Type Department Care Team (Late st Contact Info) Description 05/10/2025 Telephone [facility] [address] [place] [phone] No, [place] [address] Social History Tobacco Use Types Packs/Day Years [...] on file documented as of this encounter Miscellaneous Notes * Telephone Encounter - Ave Page - 05/10/2025 7:03 AM EDT Amanda Raymond calls clinic to discuss return to work after personal medical leave of absence for LF foot big toenail removed . WD ID: [id number] Employer: [employer]: [id number] Shift: 1st Full-time GL and #: Rodrigo Oliver Previous/current indefinite restrictions? No LDW: 05/01/25 DOS: N/A PROCEDURE: N/A SURGEON: N/A RELEASE: Regular Duty 05/12/25 Additional notes from phone call: has note, going to send to nurses email If WMLOA, still getting compensation from work comp? No: [employer] If WMLOA, treatment for any personal medical condition during leave? No If PMLOA, work-related injury immediately before leave? No Same day occ or personal follow up scheduled? No Reviewed and/or scheduled for WC/WH? No Request sent to confirm cost center? No Ave Page documented in this encounter Plan of Treatment Not on file documented as of this encounter Visit Diagnoses Not on filedocumented in this encounter Care Teams Principal Clerk Relationship Specialty Start Date End Date April Rolon APRN [address] [place] [id number] PCP - General Slate Roofer 01/29/22 documented as of this encounter
--- OUTSIDE RECORDS SUMMARY | 2025-07-05 09:26 | XMS_ITS | Data Portability ---
Author Organization OLGA TAYLOR [facility] CLAUDIA [facility] Address [address] [place] [phone] Assessment No assessment recorded. Plan of Treatment Reminders Order Date Submit Date Provider Last Modified By Organization Details Last Modified Time Details Appointments None record ed. Lab None record ed. Referral None record ed. Procedures None record ed. Surgeries None record ed. Imaging None record ed. Medication Orders None record ed. Patient TargetsNo targets recorded. Patient InstructionsNo instructions recorded. Reason for Referral None Reported. Results Created Date Observation Date Name Description Value Unit Range Abnormal Flag Note LastModifiedBy Organization Detail LastModifiedTime 07/24/20 22 07/18/2022 elect rocar diogr am No observ ation record ed. [email or web address] Not Available 2021 13:18:52 Result Notes None recorded. Problems Name Problem SNOMED Code Status Onset Date Resolution Date Notes Provider Name and Address Organization Details Recorded Time Vertigo 648435703 Active 2021 OLGA Lieberman - LPNT [facility] [place] 2 09:18:51 Assessment of dizziness Active 2021 OLGA Lieberman LPNT [facility] [place] 2 09:19:02 Dizziness 319047812 Active 2021 Lea Russell, DO [address] , [place], [address] , OL[facility] LORINT [facility] [place] 2 15:01:53 Problem Notes None recorded. Procedures Surgical History Date Name Laterality Status Provider Name and Address Organization Details Recorded Time 07/25/20 22 decompression of nerve completed Britta Kirby NT [facility] [place] 07/31/2022 14:24:02 Imaging Results None recorded. Procedure Notes None recorded. Medical Equipment None Reported. Allergies No known drug allergies Medications Name Sig Start Date Stop Date Status Note LastModified by Organization Details LastModified Time amoxicillin 500 mg capsule TAKE 1 CAPSULE BY MOUTH THREE TIMES DAILY 07/31 completed Not Available Not Available Not Available buspirone 5 mg tablet Take 1 tablet twice a day by oral route. 07/31 completed Not Available Not Available Not Available lamotrigine 150 mg tablet Take 1 tablet every day by oral route. active Not Available Not Available No t Available trazodone 50 mg tablet Take 1 tablet every day by oral route at bedtime. 07/31 completed Not Available Not Available Not Available ibuprofen 800 mg tablet Take 1 tablet 4 times a day by oral route. active Not Available Not Available No t Available hydrocodone 5 mg-acetamin ophen 325 mg tablet TAKE 1 TABLET BY MOUTH EVERY 4 HOURS NEEDED FOR PAIN 07/31 completed Not Available Not Available Not Available prednisone 20 mg tablet TAKE 2 TABLETS BY MOUTH ONCE DAILY FOR 5 DAYS 07/31 completed Not Available Not Available Not Available acetaminoph en 300 mg-codeine 30 mg tablet TAKE 1 TABLET BY MOUTH EVERY 6 HOURS 07/31 completed Not Available Not Available Not Available amoxicillin 500 mg tablet TAKE 1 TABLET BY MOUTH THREE TIMES DAILY 07/31 completed Not Available Not Available Not Available levothyroxi ne 25 mcg tablet TAKE 1 TABLET BY MOUTH 1 ONCE DAILY 07/31 completed Not Available Not Available Not Available meloxicam 7.5 mg tablet TAKE 1 TABLET BY MOUTH ONCE DAILY 07/31 completed Not Available Not Available Not Available oxycodone-a cetaminophe n 5 mg-325 mg tablet TAKE 1 TABLET BY MOUTH EVERY 4 HOURS NEEDED FOR PAIN active Not Available Not Available No t Available meclizine 25 mg tablet Take 1 tablet 3 times a day by oral route as needed. active Not Available Not Available No t Available methylpredn isolone 4 mg tablets in a dose pack FOLLOW DIRECTION S ON PACKET, TAKE UNTIL GONE 07/31 completed Not Available Not Available Not Available ondansetron 4 mg disintegrat ing tablet Place 2 tablets every 8 hours by transling ual route as needed. 07/31 completed Not Available Not Available Not Available chlorhexidi ne gluconate 0.12 % mouthwash STARTING IN 2 DAYS, PLACE 1/2 CAPFUL IN MOUTH TWICE DAILY, ROLL AROUND AND LET FALL OUT , DO NOT SWISH AND SPIT, USE FOR 5 DAYS 07/31 completed Not Available Not Available Not Available levothyroxi ne 25 mcg capsule Take 1 capsule every day by oral route. active Not Available Not Available No t Available Nexplanon 68 mg subdermal implant Inject by subcutane ous route. active Not Available Not Available No t Available Latuda 20 mg tablet Take 1 tablet every day by oral route. active Not Available Not Available No t Available L-Methylfol ate Forte 15 mg-90.314 mg capsule TAKE 1 CAPSULE BY MOUTH ONCE DAILY active Not Available Not Available No t Available EluRyng 0.12 mg-0.015 mg/24 hr vaginal ring Insert 1 vaginal ring every month by vaginal route. 07/31 completed Not Available Not Available Not Available BinaxNOW COVID-19 Ag Self Test kit Use as Directed on the Package 07/31 completed Not Available Not Available Not Available Vitals Date Recorded Body height Body mass index (BMI) Body weight Heart rate Systolic And Diastolic Provider Name and Address Organization Details Last Updated DateTime 07/31/2022 162.56 cm 29.2 kg/m2 48080.7 g 67 /min 120/70 mm[Hg] Britta ESPINOZA [facility] [place] 07/31/2022 14:15:29 Social History Question Answer Notes LastModified by Redeemat ion Details LastModified Time Tobacco Smoking Status Never Smoker [facility] [place] 07/31/2022 14:21:52 What Is Your Level Of Caffeine Consumption? Occasional Information not available 07/31/2022 Do You Have Any Pets? No Information not available 07/31/2022 What Is Your Relationship Status? Information not available 07/31/2022 Are You Currently In School? No Associates Information not available 07/31/2022 Sex: Unknown Functional Status Question Answer Note LastModified by Organizat ion Details LastModified Time Do you use any illicit or recreational drugs? No Information not available 07/31/2022 What is your level of alcohol consumption? Occasional 2 beers a week Information not available 07/31/2022 Are you currently employed? No but works a [email or web address] Information not available 07/31/2022 Are you able to care for yourself independently? Yes Information not available 07/31/2022 Mental Status None recorded. Family History Relationship Description Onset Age of this Age Resolved Age Notes LastModified by Organization Details LastModified Time Mother Hypothyroidi sm ldalla Not available 2021 14:19:49 Mother Chronic mental disorder chroni c major depres emiliana ldalla Not available 07/31/2022 14:21:04 Father Chronic mental disorder bipola r ldalla Not available 07/31/2022 14:20:26 Medical History Condition Response Thyroid Disease Y Headaches Y Depression Y Gynecological HistoryNo gynecological history recorded. Obstetrics History GPAL:G 0 P 0 0 0 0 Past Encounters Encounter ID Performer Location Encounter Start Date Encounter Closed Date Diagnosis/Indication Diagnosis SNOMED-CT Code Diagnosis ICD10 Code Diagnosis IMO Codes Diagnosis Note [id number] Lea Russell, DO [facility] Neurology [address] [facility],[address] [place] [address] 07/31/2022 13:35:54 07/31/2022 14:51:13 Dizziness 879418839 R42 She has a normal neuro exam here today. I could not reproduce her dizziness. Due to the persistent nature of her symptoms it would be reasonable to order some neuroimagi ng. Her ENT specialist has ordered a MRI brain that is to be done after the new year. Potentiall y we could see if I could get that done sooner here at [facility] but I would want her to confirm with the ENT exactly what he has ordered first. She will call if she wants me to proceed with ordering a MRI brain.I did express concern with her driving. She has not been able to work as turning her head makes her symptomati c and therefore I find it high risk to drive if turning her head can make her symptomati c. She will continue with vestibular therapies. She has appointmen t this week to discuss medication s with her psychiatri st. Health Concerns Section Related Observation LastModified by Organization Detai ls LastModified Time None Recorded Concern Status LastModified by Organization Details LastModified Time None Recorded Advance Directives Directive None Recorded Payers Insurance Date Sequence Insurance Name Policy Number Policy Winters Covered Member ID Winters Member ID Guarantor Name 07/31/2022 1 [id number] ([id number]) [id number] Juan Manuel Raymond [id number] Amanda Raymond Notes Date Note Type Note Provider Name and Address Organization Details Recorded Time 07/31/2022 text/html 32 y/o right handed female here for neurologic consultation requested by April Rolon regarding dizziness. Amanda is the primary historian for today's visit. Amanda reports having persistent dizziness for the last six months. She develop acute episode of vertigo in January. It lasted a day and then it went away but she has been left with heavy headedness and she feels like she is constantly on a boat rocking up and down. She finds when she turns her head it makes her dizziness worse. She has not been able to work. She feels unsafe being around heavy machinery as when she turns her head it makes her dizzy. She is driving and tells me she has not had any issues driving due to dizziness. She saw ENT, Dr Hurtado, in March for these issues. She had a normal hearing test. He recommended vestibular therapies. She has meclizine for symptomatic management. She does not find this helpful. She saw ENT a few weeks ago for another opinion. This physician has diagnosed her with vestibular neuritis. He recommended continued therapies. He would want her to try therapy at [facility]. He did order imaging of her brain but it is not being done til after the first of the year.He did feel that her bipolar medications were preventing her from recovering.She has upcoming appt with her psychiatrist this week to discuss her medications. Lea Russell, DO [address] , [place], [address], [place] - [place] - [place] & [place] 07/31/2022 15:07:26 OBGyn Episode No OBEpisode recorded.
--- OUTSIDE RECORDS SUMMARY | 2025-07-05 09:26 | XMS_ITS | Encounter Summary ---
Author Organization [facility] Address [address] [place] [address] Care Team Providers Care Travel Manager Name Role Phone April Rolon APRN Primary Care Provider [phone] Zeb Holloway Unavailable Unavailable Encounter Details Date Type Department Care Team (Late st Contact Info) Description [facility] [address] [place] [address] Arnulfo Barrow Sciatica, unspecified laterality (Primary Dx); Left foot pain Social History Tobacco Use Types Packs/Day Years Used Date Smoking Tobacco: Never Smokeless Tobacco: Never PHQ-2 Answer Date Recorded Patient Health Questionnaire-2 Score 0 04/17/2022 Comments Unknown Sex and Gender Information Value Date Recorded Sex Assigned at Not on file Legal Sex Female 6:59 PM EDT Gender Identity Not on file Sexual Orientation Not on file COVID-19 Exposure Response Date Recorded In the last 10 days, have yo u been in contact with someone who was confirmed or suspected to have Coronavirus/COVID-19? No / Unsure 05/18/2022 9:36 AM EDT documented as of this encounter Plan of Treatment Not on file documented as of this encounter Visit Diagnoses Diagnosis Sciatica, unspecified laterality- Primary Left foot pain Pain in soft tissues of limb documented in this encounter Additional Health Concerns Assessment Noted Time A fall risk assessment has been complete d for the patient 01/16/2022 9:44 AM EDT documented as of this encounter Care Teams Travel Manager Relationship Specialty Start Date End Date April Rolon APRN [address] [place] [address] PCP - General 01/06/21 Zeb Holloway [address] [place] [address] Community Health Worker Sole Cutter 09/18/2309/20 documented as of this encounter
== END 2025-07-05 23:59 | disposition home or self-care (01) ==
LOC: RAD 09:13
PROVIDERS: PCP Internal Medicine Adolescent Medicine; Visit Provider Physician Assistant
DX: M25.561 Pain in right knee (principal); R53.1 Weakness
CPT/HCPCS: 73562

== ENCOUNTER 2025-07-06 09:38 | Outpatient (RCR) | payer BC, SELFPAY ==
--- NOTE | 2025-07-06 11:25 | HMH.PTOPEV ---
PT Evaluation Rehab PT Outpatient Evaluation Start: 07/06/25 09:55 Freq: Status: Active Protocol: Document 07/06/25 09:55 IANHiginio (Rec: 07/06/25 11:11 [email or web address] [id number]) E-signed By Sheron Stanton, PT Outpatient Therapy Subjective History Subjective History Pt is a 35 y/o female referred to PT for R knee patellofemoral disorder and muscle weakness. Pt reports onset of R knee pain 3 months ago with gradual worsening of symptoms. Pt had a R knee xray on 07/05/25 without acute findings. Pt reports she went to the doctor and was told to ice her knee and was prescribed an anti-inflammatory which improved her symptoms. Pt reports she quit taking the medication and symptoms returned. Pt reports current symptoms of right anterior knee pain aggravated in end range positions flexion> extension. Pt states she is unable to sit with her leg under her or carlos alberto crossed, perform a deep squat, or run. Pt reports her right leg feels weak and gives way on her when she tries to perform single leg stance such as when perform [employer]. 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 Chief Complaint Pain,Weakness Symptom Type Sharp Symptoms Relieved By Rest/Positioning,Ice,Prescription Meds Symptoms Aggravated Physical Activity By Current Functional Squatting,Recreation Activity,Stairs Limitations Symptom Description Constant but Variable Level of pain today 5 (0-10) Pain scale - at its 2 best (0-10) Pain scale - at its 7 worst (0-10) Hip/Knee Eval Gait Observation General Gait Pattern No Deviations/Normal Observation Assistive Device Assistive Devices None / NA Palpation Tenderness right Knee Palpation Tenderness Finding Knee Palpation 2/4 TTP inf pole of the patella, medial joint line, med Overall Comment femoral condyle MMT Hip Flexion Strength 4- Good- Grade Hip Abduction 4- Good- Strength Grade Hip Adduction 4- Good- Strength Grade Knee Extension 4 Good Strength Grade Knee Flexion 4+ Good+ Strength Grade ROM Knee Extension 0 Active Range of Motion (degrees) Knee Flexion Active 140 Range of Motion ( degrees) Special Tests Knee Anterior Negative Left,Negative Right Gayle Test Knee Posterior Sag ( Negative Left,Negative Right [place] Drawer) Test Knee Valgus Stress Negative Left,Negative Right Test Knee Varus Stress Negative Left,Negative Right Test Knee Jewel Test Negative Left,Negative Right Lower Extremity Functional Index Activities Today, do you or would you have any difficulty at all with: a.Any of your usual A little bit of difficulty work, housework or school activities b. Your usual Quite a bit of difficulty hobbies, recreational or sporting activities c. Getting into or No difficulty out of the bath d. Walking between No difficulty rooms e. Putting on your No difficulty shoes or socks f. Squatting Quite a bit of difficulty g. Lifting an object No difficulty , like a bag of groceries from the floor h. Performing light Moderate difficulty activities around your home i. Performing heavy Quite a bit of difficulty activities around your home j. Getting into or No difficulty out of a car k. Walking 2 blocks A little bit of difficulty l. Walking a mile A little bit of difficulty m. Going up or down A little bit of difficulty 10 stairs (about 1 flight of stairs) n. Standing for 1 A little bit of difficulty hour o. Sitting for 1 A little bit of difficulty hour p. Running on even Extreme difficulty or unable to perform activity ground q. Running on uneven Extreme difficulty or unable to perform activity ground r. Making sharp Extreme difficulty or unable to perform activity turns while running fast s. Hopping Extreme difficulty or unable to perform activity t. Rolling over in A little bit of difficulty bed LEFI Score Lower Extremity 46 Functional Index Score Miscellaneous Dx PT Eval Objective Objective + Thessaly test Outpatient Therapy Assessment Impairments Problems/ Palpation Tenderness,Impaired Range of Motion,Impaired Impairmments Strength,Impaired Squatting,Impaired Recreational Activities,Impaired Running,Impaired Work Activities, Subjective C/O Pain,Impaired Self Care/Self Management Prognosis Rehab Potential Good Clinical Impression Consistent with Yes Diagnosis PT Patient Goals PT Patient Goals PT Short Term 3 weeks: Patient Goals 1. Verbalize compliance of HEP to assist with progress. 2. Improve LEFS score to 56/80 to improve QOL/function. 3. Improve pain at worst to 5/10 on VAS to improve overall QOL/function. 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 Improve R knee tenderness to palpation to 0-1/4 to assist with pain and function. 2. Improve RLE MMT to 4+-5/5 grossly to assist with function. 3. Perform R SLS x30 firm surface without LOB to assist with R knee stability. 4. Improve LEFS score to 66/80 to improve overall QOL/ function. 5. Improve pain at worst to 3/10 on VAS to improve overall QOL/function. Outpatient Therapy Plan of Care Treatment Plan May Include Therapeutic Exercise Yes Including Home Exercise Program Manual Therapy Yes Techniques Neuromuscular Re- Yes education Therapeutic Yes Activities to Return to Previous Functional/Work Level Gait Training Yes ADL/Self Care Yes Education Dry Needling Yes Thermal Modalities Yes Electrical Yes Stimulation Ultrasound/ Yes Phonophoresis Iontophoresis Yes Orthotics/Bracing/ Yes Splinting Vasopneumatic Yes Compression Pump Massage Yes Eval/Re-Eval Yes Frequency Times per week 2 Duration Number of Weeks 4-6 Addendums This patient is a No candidate for social or vocational rehab ? Patient/Guardian Yes verbally acknowledges understanding of treatment program and consents to further treatment? Patient/Guardian Yes verbally acknowledges understanding of diagnosis, prognosis and goals for treatment? Eval Complexity PT Charges 57743 - Low Complexity Shoulder/Elbow Eval Shoulder Objective Measurements Elbow Objective Measurements PHYSICIAN CERTIFICATION: I certify the specified therapy services for Amanda Raymond are required, authorized, and reviewed every 30 days.
== END 2025-07-06 23:59 | disposition home or self-care (01) ==
LOC: PT 09:38
PROVIDERS: PCP Internal Medicine Adolescent Medicine; Visit Provider Physician Assistant
DX: M22.2X1 Patellofemoral disorders, right knee (principal); M62.81 Muscle weakness (generalized)
CPT/HCPCS: 97161